=== PATIENT | female | born 1935 | race Caucasian/White ===

== ENCOUNTER → 2020-04-21 | Outpatient (CLI) | payer MEDICARE ==
[2020-04-21 09:03] LABS: POTASSIUM 3.6 MMOL/L (3.6-5.0)
[2020-04-21 09:04] LABS: ALBUMIN 3.9 GM/DL (3.2-4.5); BILIRUBIN,TOTAL 0.8 MG/DL (0.1-1.0); CALCIUM 9.6 MG/DL (8.5-10.1); CREATININE SERUM 0.94 MG/DL (0.60-1.30); TOTAL PROTEIN 6.8 GM/DL (6.4-8.2)
== END ==
LOC: LAB FS 08:20
PROVIDERS: ATTEND Family Medicine
DX: I10 Essential (primary) hypertension (principal)
CPT/HCPCS: 36415; 80053

== ENCOUNTER 2020-06-22 16:40 | Emergency (ER) | payer MEDICARE ==
[~2020-06-22] VITALS: Ht 160 cm; Wt 48.6 kg
[2020-06-22 16:44] VITALS: BP 157/77
--- NOTE | 2020-06-22 16:50 | ED Fall/Injury ---
General Stated Complaint: FALL,HEAD AND HAND LAC Source: patient Exam Limitations: no limitations History of Present Illness Date Seen by Provider: Jun 22, 2020 Time Seen by Provider: 16:40 Initial Comments The patient is a pleasant 85-year-old female who presents for evaluation of facial and left hand injuries after a fall at home. She states that she tripped and fell and hit the left side of her face on the ground. There is some bleeding and bruising around the left eye and some abrasions and pain to the left hand. She did not hit her head or lose consciousness and denies any neck pain. She takes an aspirin daily but no other blood thinning medications. She denies vision changes, focal weakness or numbness, nausea, chest pain or shortness of breath, confusion, difficulty walking, or difficulty speaking. She is alert and oriented 4, calm, and appears to be in no distress. She last received a tetanus shot about a year ago, so she is up-to-date. Occurred: just prior to arrival Severity: moderate Injuries/Pain Location: face, upper extremity (left hand) Context: tripped Loss of Consciousness: no loss of consciousness Associated Symptoms (Fall): Denies Symptoms Allergies and Home Medications Allergies Coded Allergies: No Known Drug Allergies (Unverified , 06/22/20) Patient Home Medication List Home Medication List Reviewed: Yes Review of Systems Review of Systems Constitutional: no symptoms reported Eyes: See HPI Ears, Nose, Mouth, Throat: see HPI Respiratory: no symptoms reported Cardiovascular: no symptoms reported Gastrointestinal: no symptoms reported Genitourinary: no symptoms reported Musculoskeletal: joint pain (left hand pain) Skin: no symptoms reported, other (left face and left hand abrasions) Psychiatric/Neurological: No Symptoms Reported All Other Systems Reviewed Negative Unless Noted: Yes Past Zzbzjpp-Hncihu-Ofacrt Hx Past Med/Social Hx: Reviewed Nursing Past Med/Soc Hx Patient Social History Recent Foreign Travel: No Contact w/Someone Who Travel: No Physical Exam Vital Signs Vital Signs - First Documented 06/22/20 16:44 Temp 36.5 Pulse 86 Resp 16 B/P (MAP) 157/77 (103) Pulse Ox 99 O2 Delivery Room Air Capillary Refill : Height, Weight, BMI Height: '" Weight: lbs. oz. kg; BMI Method: General Appearance: WD/WN, no apparent distress HEENT: other (ecchymosis and swelling below left eye, no bony facial tenderness, abrasion/superficial laceration to left upper cheek area) Respiratory: lungs clear, normal breath sounds, no respiratory distress Gastrointestinal: non tender, soft, no pulsatile mass Neurologic/Psychiatric: travel counselor II-XII nml as tested, no motor/sensory deficits, al ert, normal mood/affect, oriented x 3 Skin: normal color, warm/dry, other (left hand abrasion to dorsal surface of left thumb) Kassie Coma Score Best Eye Response: (4) Open Spontaneously Best Verbal Response: (5) Oriented Best Motor Response: (6) Obeys Commands Progress/Results/Core Measures Results/Orders My Orders Orders - ROXI SLADE DO Hand 3 View Left (06/22/20 16:46) Ice: Apply To Affected Area (06/22/20 16:46) Ct Head/Face/Cervical Wo (06/22/20 16:42) Vital Signs/I&O 06/22/20 16:44 Temp 36.5 Pulse 86 Resp 16 B/P (MAP) 157/77 (103) Pulse Ox 99 O2 Delivery Room Air Diagnostic Imaging Diagonstic Imaging: Xray Comments [facility], [place] NAME: NEMESIO SHETTY [facility] REC#: [id number] PT STATUS: REG ER : 1935 PHYSICIAN: ROIX SLADE DO ADMIT DATE: 06/22/20/ER FS Draft Date of Exam:06/22/20 HAND 3 VIEW LEFT INDICATION: Fall, left hand pain. COMPARISON: None. FINDINGS: Three views of the left hand demonstrate no fracture or dislocation. Articular surfaces are age-appropriate. No bony erosion is seen. There is no radiopaque foreign body. IMPRESSION: No fracture or dislocation. Dictated on workstation # [id number] Dict: 06/22/20 1719 Trans: 06/22/20 1723 [facility] [id number] Interpreted by: GRAY HINES Electronically signed by: Departure Impression Primary Impression: Contusion of left hand Additional Impression: Orbital wall fracture Disposition: 01 HOME, SELF-CARE Condition: Stable Departure-Patient Inst. Decision time for Depature: 17:43 Referrals: MICHAEL HESTER MD Patient Instructions: Contusion (DC), Facial Fracture (DC) Add. Discharge Instructions: Patient updated on imaging results which show a orbital and sinus fracture. Advised the patient to follow up with ENT in the next 1-2 days and to return to the emergency Department immediately for new or worsening symptoms. The patient will go home with a prescription for Augmentin. Scripts Amoxicillin/Potassium Clav (Augmentin 875-125 Tablet) 1 Each Tablet 1 EACH PO BID for 7 Days, #14 TAB 0 Refills Prov: ROXI SLADE DO 06/22/20 ROXI SLADE DO Jun 22, 2020 16:50
--- NOTE | 2020-06-22 17:24 | Diagnostic Imaging Report ---
INDICATION: Fall, left hand pain. COMPARISON: None. FINDINGS: Three views of the left hand demonstrate no fracture or dislocation. Articular surfaces are age-appropriate. No bony erosion is seen. There is no radiopaque foreign body. IMPRESSION: No fracture or dislocation. Dictated by: Dictated on workstation # [id number]
--- OUTSIDE RECORDS SUMMARY | 2020-06-22 17:28 | XMS REPORT | Continuity of Care Document ---
Author Organization Unknown Address Unknown Phone Unavailable Allergies Active Description Code Type Severity Reaction Onset Reported/Identified Relationship to Patient Clinical Status Yes No Known Drug Allergies [id number] Drug Allergy Unknown N/A 06/22/2020 Medications There is no data. Problems Date Dx Coded Attending Type Code Diagnosis Diagnosed By 04/24/2020 MIKE FALLON MD Ot I10 ESSENTIAL (PRIMARY) HYPERTENSION 04/24/2020 MIKE FALLON MD Ot I10 ESSENTIAL (PRIMARY) HYPERTENSION 05/13/2020 MIKE FALLON MD Ot I10 ESSENTIAL (PRIMARY) HYPERTENSION Procedures There is no data. Results There is no data. Encounters ACCT No. Visit Date/Time Discharge Status Pt. Type Provider Facility Loc./Unit Complaint [id number] 04/21/2020 08:20:00 020 23:59:59 CLS Outpatient MIKE FALLON MD [facility] LAB FS ESSENTIAL HTN [id number] 06/22/2020 16:41:[address] Emergency YANY DIANE DO [facility] ER FS FALL,HEAD AND HAND LAC
--- NOTE | 2020-06-22 17:34 | Diagnostic Imaging Report ---
PROCEDURE: CT head, face, and cervical spine without contrast. TECHNIQUE: Multiple contiguous axial images were obtained through the head, neck, and facial bones without the use of intravenous contrast. Sagittal and coronal reformations through the cervical spine and facial bones were also performed. Auto Exposure Controls were utilized during the CT exam to meet ALARA standards for radiation dose reduction. INDICATION: Fall with head, face, and neck injuries. FINDINGS: MAXILLOFACIAL CT: There is mildly comminuted depressed fracture involving the lateral wall of the left orbit extending into the lateral wall of the left maxillary sinus. There is mildly depressed fracture involving the anterior and posterior margins of the left zygomatic arch. Mildly depressed fracture extends to the posterior floor of the left orbit as well. Globes appear to be intact with medial scleral calcifications which are symmetric bilaterally, possibly related to previous instrumentation. No significant intraocular hematoma is identified. There is air-fluid level within the left maxillary sinus. There is material within the left external auditory canal which could represent cerumen or hemorrhage. IMPRESSION: Fractures involving lateral wall of left orbit and maxillary sinuses with extension to the posterior floor of the left orbit. There are also mildly depressed left zygomatic arch fractures and left maxillary hemo-sinus. No obvious ocular or disruption or intraocular hemorrhage is identified. CT HEAD: CT images of the head were obtained. FINDINGS: Ventricles and sulci are within normal limits for size. There is no intracranial hemorrhage identified. There is no abnormal mass effect or shift of midline structures. IMPRESSION: Unremarkable CT of the head. Facial fractures are described in separate facial CT report. CT CERVICAL SPINE: There is loss of cervical lordosis with moderate narrowing of the C4-C5 and C5-C6 disc spaces. There is approximately 3 mm anterolisthesis of C3 on C4 without facet joint subluxation or dislocation. There is diffuse degenerative facet arthropathy. No acute fracture or malalignment is identified. IMPRESSION: There are degenerative findings present within the cervical spine, however no acute cervical spinal abnormality is seen. Dictated by: Dictated on workstation # [id number]
[2020-06-22] MEDS ORDERED: AMOX-358 PO (17:44)
== END 2020-06-22 17:48 | disposition home or self-care (01) ==
LOC: EDUNIT# 16:40 → ER FS 16:41
DX: S02.85XA Fracture of orbit, unspecified, initial encounter for closed fracture (principal); S01.412A Laceration without foreign body of left cheek and temporomandibular area, initial encounter; S60.222A Contusion of left hand, initial encounter; R40.2142 Coma scale, eyes open, spontaneous, at arrival to emergency department; R40.2252 Coma scale, best verbal response, oriented, at arrival to emergency department; R40.2362 Coma scale, best motor response, obeys commands, at arrival to emergency department; Z79.82 Long term (current) use of aspirin; W01.198A Fall on same level from slipping, tripping and stumbling with subsequent striking against other object, initial encounter
CPT/HCPCS: 70450; 70486; 72125; 73130

== ENCOUNTER 2021-09-09 05:39 | Outpatient (CLI) | payer MEDICARE ==
[~2021-09-09] VITALS: Ht 160 cm; Wt 46.4 kg
[~2021-09-09 05:39] MED LIST: AMOX-358 PO
[2021-09-09] MEDS ORDERED: LOSA50TA63 PO (13:17)
[2021-09-09] MEDS ORDERED: LATA7.5D OU (13:17)
== END 2021-09-09 15:21 | disposition home or self-care (01) ==
LOC: PREOP 05:39
PROVIDERS: ATTEND Otolaryngology Otolaryngology/Facial Plastic Surgery
DX: Z01.818 Encounter for other preprocedural examination (principal)

== ENCOUNTER 2021-09-16 07:24 | Day surgery (SDC) | payer MEDICARE ==
[2021-09-16] VITALS (8 sets, daily range): BP systolic 147–184; BP diastolic 78–90
[~2021-09-16] VITALS: Ht 160 cm; Wt 46.4 kg
[~2021-09-16 07:24] MED LIST changes: +LATA7.5D OU; +LOSA50TA63 PO
[2021-09-16 08:17] LABS: BASOPHILS # (AUTO) 0.1 10^3/uL (0.0-0.1); BASOPHILS % (AUTO) 2 % (0-10); EOSINOPHILS # (AUTO) 0.1 10^3/uL (0.0-0.3); EOSINOPHILS % (AUTO) 2 % (0-10); HEMATOCRIT 44 % (35-52); HEMOGLOBIN 14.9 g/dL (11.5-16.0); LYMPHOCYTES % (AUTO) 30 % (12-44); MEAN CORPUSCULAR HEMOGLOBIN 32 pg (25-34); MEAN CORPUSCULAR HGB CONC 34 g/dL (32-36); MEAN CORPUSCULAR VOLUME 94 fL (80-99); MONOCYTES # (AUTO) 0.5 10^3/uL (0.0-1.0); MONOCYTES % (AUTO) 8 % (0-12); NEUTROPHILS % (AUTO) 59 % (42-75); PLATELET COUNT 253 10^3/uL (130-400); WHITE BLOOD COUNT 6.8 10^3/uL (4.3-11.0)
[2021-09-16] MEDS: LACTATED RINGERS 1,000 ML IV PRN ×2 (08:29→10:00)
[2021-09-16 08:35] LABS: CALCIUM 9.9 MG/DL (8.5-10.1); CREATININE SERUM 1.15 MG/DL (0.60-1.30); POTASSIUM 3.3 MMOL/L (3.6-5.0)
[2021-09-16] MEDS ORDERED: ONDANSETRON 4 MG/2 ML (SDV) Z0FRAN ONE (08:49)
[2021-09-16] MEDS ORDERED: LIDOCAINE PF 2% 5 ML (XYLOCAINE) VIAL ONE (08:49)
[2021-09-16] MEDS ORDERED: MUPIROCIN 2% OINT 22 GM (BACTROBAN) TUBE ONE (08:49)
[2021-09-16] MEDS ORDERED: proPOfol 200 MG/20 ML (DIPRIVAN) VIAL IV ONE (08:49)
[2021-09-16] MEDS ORDERED: LIDOCAINE/EPI 1%-1:100,000 (XYLOCAINE) 20ML ONE (08:49)
[2021-09-16] MEDS ORDERED: fentaNYL INJ 100 MCG/2 ML AMP ONE (08:49)
--- NOTE | 2021-09-16 09:09 | Progress Note-Pre Operative ---
Pre-Operative Progress Note H&P Reviewed The H&P was reviewed, patient examined and no changes noted. Date Seen by Provider: Sep 16, 2021 Time Seen by Provider: 09:00 Date H&P Reviewed: Sep 16, 2021 Time H&P Reviewed: 09:00 Pre-Operative Diagnosis: left scalp lesion MICHAEL HESTER MD Sep 16, 2021 09:09
--- NOTE | 2021-09-16 09:54 | Progress Note-Post Operative ---
Post-Operative Progess Note Surgeon (s)/Air Brush Operator (s) Surgeon MICHAEL HESTER MD Air Brush Operator n/a Pre-Operative Diagnosis left scalp lesion Post-Operative Diagnosis same Post-Op Procedure Note Date of Procedure: Sep 16, 2021 Name of Procedure Performed: Excision of Posterior Scalp Lesion with Repair Description & Findings Description and Findings: n/a Anesthesia Type lma Estimated Blood Loss minimal Packing none. Specimen(s) collected/removed post scalp lesion for frozen section MICHAEL HESTER MD Sep 16, 2021 09:54
[2021-09-16] MEDS ORDERED: ACETAMINOPHEN 325 MG TABLET PO PRN ×2 (10:00)
[2021-09-16] MEDS ORDERED: HYDROcodone/APAP 5 MG/325 MG (LORTAB) TAB PO PRN (10:00)
[2021-09-16] MEDS ORDERED: SEVOFLURANE (ULTANE) 15 ML INHAL SOLN ONE (10:35)
[2021-09-16] MEDS ORDERED: ONDANSETRON 4 MG/2 ML (SDV) Z0FRAN IVP PRN (10:45)
[2021-09-16] MEDS ORDERED: morphine INJ 10 MG/ML 1ML (SYR OR VIAL) IVP ONE (10:45)
--- NOTE | 2021-09-16 11:35 | Anesthesia-General Post-Op ---
General Patient Condition Mental Status/LOC: Same as Preop Cardiovascular: Satisfactory Nausea/Vomiting: Absent Respiratory: Satisfactory Pain: Controlled Complications: Absent Post Op Complications Complications None Follow Up Care/Instructions Patient Instructions None needed. Anesthesia/Patient Condition Patient Condition Patient is doing well, no complaints, stable vital signs, no apparent adverse anesthesia problems. No complications reported per nursing. HORACIO SALCEDO CRNA Sep 16, 2021 11:35
[2021-09-16] MEDS ORDERED: CEPH500T PO (11:53)
[2021-09-16] MEDS ORDERED: ACHD5005 PO (11:53)
== END 2021-09-16 12:35 | disposition home or self-care (01) ==
LOC: SDC 07:24
PROVIDERS: ATTEND Otolaryngology Otolaryngology/Facial Plastic Surgery
DX: C44.42 Squamous cell carcinoma of skin of scalp and neck (principal)
CPT/HCPCS: 36415; 80048; 85025; 87081; 88305; 88331; 93005